=== PATIENT | male | born 1980 | race Native Hawaiian/Other Pacific Islander ===

== ENCOUNTER 2022-04-04 13:32 | Outpatient (CLI) | payer OTHER ==
[2022-04-04 14:18] VITALS: BP 132/79
--- NOTE | 2022-04-04 14:18 | SLEEP CARE CONSULTATION ---
Information from patient questionnaire entered by Robert Marquez MA. I have reviewed and concur with the information entered by Robert Marquez MA. This document represents the service I personally performed and the decisions made by me, Bernadine Barkley ARNP. History of Present Illness Service Date and Time: 04/04/2022 1332 Reason for Visit: New patient ( 09/21/2014, NO PRIORS,) Chief Complaint: reports: Insomnia, Unrefreshed sleep, Snoring, Observed pauses in breathing, Fatigue, Frequent awakenings at night Date of Onset: 2007 Usual bedtime: 930 PM Time it takes to fall asleep: VARIES Snores at night: Yes Observed to quit breathing while asleep: Yes Sleeps alone due to snoring: No Number of times waking at night: 2-3 Reasons for waking at night: reports: Snoring, Pain, Other ( waking him up, noises). denies: Choking, Gasping for air Toss, Turn, or Twitch while sleeping: Yes Recalls having dreams: Yes Usually gets out of bed at: 0500 Feels refreshed in the morning: No Morning headache: No Sleepy or fatigued during the day: Yes Ever fallen asleep while driving: Yes (drowsy driving when he was working nights; no accidents but a near miss) Takes day naps: No Dreams during day naps: No Prior sleep studies: No Additional HPI information: I had the pleasure of seeing EWELINA PARMAR JR today regarding the possibility of him having a sleep disorder. His current complaints are frequent night awakenings, insomnia, observed pauses in breathing, snoring and unrefreshed sleep. He states he has tried many sleep hygiene methods to help him get better sleep but he is still having sleep problems. He has been using sleep aids to get to sleep. He states if he doesn't take anything to help him go to sleep it will take up to 2-3 hours to fall asleep. Or he may not be able to fall asleep at all. He states that with OTC sleep aides, he will fall asleep in 30 minutes. He states he wakes up frequently for many reasons and it can take up to 30 minutes to go back to sleep. He states he wakes up 2-3 times on average. His will wake him up because of his snoring. He used wake up to his snores but he has not been as much lately. His has told him he is making a snorting/choking sound in his sleep, but no pauses in breathing. He has not woken up gasping for air. - Parasomnia Symptoms Ever been unable to move upon waking from sleep: Yes (in past, but not for a long time) Walks in sleep: No Talks in sleep: Yes Ever acted out dreams in sleep: No Ever felt weak in the knees when startled or emotional: No Bothered by creepy, crawly, restless sensations in legs: No Problems with memory or concentration: No Subjective Initial [place] Sleepiness Scale score: 8 (04/04/2022) Past Medical History Past Medical History: reports: Anxiety, Depression Social History The patient's occupation is a [employer]. Patient is and lives in . Have you smoked in the past 12 months: No Alcohol use: Yes Alcohol amount and frequency: 6-10 X YEARLY Caffeine use: Yes Caffeine amount and frequency: 2-3 X DAILY Family History Family history of sleep disordered breathing: Yes Family Hx Sleep Apnea: Mother: Snoring, Father: Snoring, Sibling: Snoring Allergies and Home Medications Known drug allergies: No Drug allergies reviewed: Yes (NKDA) Home medication list reviewed: Yes (see list) Allergy and home medication list: Medications: Sertraline 100mg 1 tab OD Zoloft 50mg 1 tab OD Ambien 5mg 1 tab q PM Review of Systems Weight gain over past 5 years: 10 Cardiovascular: reports: high blood pressure ( in doctor's office, reduces after sitting) Respiratory: reports: chronic cough Neurological: denies: seizure, head trauma Psychiatric: reports: anxiety, depression Ear/Nose/Throat: reports: nasal congestion, sinus problems, wisdom teeth removed. denies: tonsillectomy Endocrine: reports: sluggishness, excessive thirst, unexplained weakness. denies: thyroid disease Musculoskeletal: reports: joint pain, neck pain, back pain, joint swelling, muscle pain or cramping Immunologic: reports: sneezing, itching Physical Exam Vital signs obtained and entered by: Mallory MARQUEZ CMA AANV Blood Pressure: 132/79 (RESP 18, PULSE 54, RIGHT) Cuff size: wrist Heart Rate: 63 O2 Saturation: 97 (PAPER MASK) Height: 6 ft 2 in Weight: 211 lb 8 oz (C;OTHES) Body Mass Index: 27.1 BMI Classification: Overweight Neck circumference: 15.5 (INCHES) Nostrils: patent to airflow Mouth and throat: narrow oropharynx Soft palate: long Hard palate: normal Uvula: normal Uvula visualization: 25% Mallampati Class III Tongue: enlarged in size with teeth baker on lateral edges Tonsils: 1+ Neck: normal w/o lymphadenopathy or thyromegaly Heart: regular rate and rhythm Lungs: clear bilaterally Impression and Plan 1. Suspected Obstructive Sleep Apnea-Hypopnea Syndrome, as suggested by a history of loud and irregular snoring, gasping or choking in sleep, frequent awakening during the night and unrefreshed sleep. Narrow oropharynx and obesity are common predisposing factors for obstructive sleep apnea-hypopnea syndrome. I recommend proceeding to polysomnography to confirm the diagnosis and to assess severity. If the patient has significant sleep disordered breathing, a manual CPAP titration study will also be performed to find the optimal treatment pressure. I informed the patient of what the sleep studies involve and after some discussion, obtained agreement to proceed. The pathophysiology of obstructive sleep apnea-hypopnea syndrome was discussed with the patient and health risks of cardiovascular and cerebrovascular disease if not treated. Risks of drowsy driving discussed in detail and patient advised to avoid long distance driving and to mandrel puller at the first sign of drowsiness. Patient agreed to plan. * Schedule polysomnography * Avoid long distance driving or driving when feeling sleepy. * Avoid alcohol, sedative and muscle relaxant around bedtime. * Attempt to lose weight. * Review instructions provided by trained office staff on how to prepare for the sleep study. * Return for follow-up after sleep study completed. Counseling Topics: Weight loss health impact Visit Type: In Office Time Spent with Patient (minutes): 34 Provider Statement: I spent 100% of the Face to Face Visit with the patient with greater than 50% spent counseling the patient and coordination of care.
== END 2022-04-04 13:33 | disposition home or self-care (01) ==
LOC: SC 13:32
PROVIDERS: ATTEND Nurse Practitioner Family
DX: R06.83 Snoring (principal); G47.8 Other sleep disorders
CPT/HCPCS: 99203; 99212

== ENCOUNTER 2022-04-18 19:58 | Outpatient (CLI) | payer OTHER | END 2022-04-18 19:59 | disposition home or self-care (01) | LOC: SC 19:58 | PROVIDERS: ATTEND Nurse Practitioner Family | DX: G47.33 Obstructive sleep apnea (adult) (pediatric) (principal) | CPT/HCPCS: 95810 ==

== ENCOUNTER 2022-06-05 14:53 | Outpatient (CLI) | payer OTHER ==
[2022-06-05 15:21] VITALS: BP 124/88
--- NOTE | 2022-06-05 15:21 | SLEEP CARE CONSULTATION ---
Information from patient questionnaire entered by Debbie Land. I have reviewed and concur with the information entered by Debbie Land. This document represents the service I personally performed and the decisions made by , Bernadine Barkley ARNP. History of Present Illness Service Date and Time: 06/05/2022 1453 Previous diagnosis: Mild, Obstructive Sleep Apnea-Hypopnea Syndrome AHI: 8.3 (in 2021) Reason for follow up: one month (ONE MONTH F/U POSITIONAL THERAPY ) Prior sleep studies: No HPI additional information: EWELINA PARMAR JR was diagnosed to have mild, AHI 8.3, obstructive sleep apnea-hypopnea syndrome and returned today for Positional therapy one month follow-up. He states that he is still waking up at night and is not fully rested in the mornings. Sleep Study - Results Prior sleep studies: No CPAP Compliance Data Compliance data discussion: He is using pillow for positioning and it is not working as well as he had hoped. He does try to stay on his side every night. Subjective Initial [place] Sleepiness Scale score: 8 (04/04/2022) Current [place] Sleepiness Scale score: 7 (06/05/22) Allergies and Home Medications Home medication list reviewed: Yes (no changes) Review of Systems Review of systems same as previous: No (seen for high blood pressures, high at dentist) Physical Exam Vital signs obtained and entered by: MICHAEL ,DOMINGO Blood Pressure: 124/88 (LEFT ARM ) Cuff size: regular Heart Rate: 78 O2 Saturation: 97 Height: 6 ft 2 in Weight: 214 lb Body Mass Index: 27.4 BMI Classification: Overweight Impression and Plan 1. Obstructive Sleep Apnea-Hypopnea Syndrome, mild. Using positional therapy, the patient has only had a slight improvement of his sleep quality and feeling of being more rested overall. He has recently been having some elevated blood pressure. He would like to change to CPAP therapy. Positive pressure therapy could benefit anxiety, depression and elevated blood pressure. The patient will be started on nasal autoCPAP therapy with pressure set at 4-15 cmH2O. Compliance guidelines also reviewed. A copy of compliance guidelines will be given for reference at check out. Because the apnea is more severe supine, he is continuing to do positional therapy to avoid sleeping supine using pillow positioning until able to start CPAP use. * Nasal auto CPAP therapy, pressure at 4-15 cm H2O. * Maintain a healthy weight. * Avoid alcohol consumption near bedtime. * Avoid supine sleep until using CPAP. * The patient is again cautioned about driving until sleepiness completely resolves. * Return one month after CPAP obtained. I will assess response to therapy and compliance at that time. Counseling Topics: Sleeping position, Weight loss health impact Visit Type: In Office Time Spent with Patient (minutes): 22 Provider Statement: I spent 100% of the Face to Face Visit with the patient with greater than 50% spent counseling the patient and coordination of care.
== END 2022-06-05 14:54 | disposition home or self-care (01) ==
LOC: SC 14:53
PROVIDERS: ATTEND Nurse Practitioner Family
DX: G47.33 Obstructive sleep apnea (adult) (pediatric) (principal); E66.3 Overweight; Z68.27 Body mass index [BMI] 27.0-27.9, adult
CPT/HCPCS: 99212; 99213